=== PATIENT | female | born 1995 | race Caucasian/White ===

== ENCOUNTER 2021-05-05 11:25 | Emergency (ER) | payer BC, OTHER ==
[~2021-05-05] VITALS: Ht 177.8 cm; Wt 83.9 kg
[2021-05-05 12:37] LABS: ABSOLUTE NEUTROPHILS 3.2 thou/uL (1.4-8.2); BASOPHILS 1.6 % (0.0-2.0); EOSINOPHILS 2.5 % (0.0-3.0); HEMATOCRIT 41.5 % (37.0-47.0); HEMOGLOBIN 13.9 gm/dL (12.0-15.0); MCH 30.7 pg (26.0-34.0); MCHC 33.4 g/dL (28.0-37.0); MONOCYTES 10.4 % (1.0-8.0); PLATELET COUNT 288 thou/uL (150-400); POLYS 57.5 % (36.0-66.0); RBC 4.52 mil/uL (4.20-5.00); RDW 12.4 % (10.5-14.5); WBC 5.6 thou/uL (4.0-11.0)
[2021-05-05 12:43] LABS: CALCIUM 9.3 mg/dL (8.5-10.1); CREATININE 0.7 mg/dL (0.6-1.0); POTASSIUM 3.3 mmol/L (3.5-5.1)
[2021-05-05 13:59] LABS: URINE BILIRUBIN NEGATIVE (Negative); URINE BLOOD NEGATIVE (Negative); URINE CLARITY CLEAR; URINE COLOR YELLOW; URINE GLUCOSE-RANDOM* NEGATIVE (Negative); URINE KETONES NEGATIVE (Negative); URINE LEUKOCYTES-REFLEX NEGATIVE (Negative); URINE NITRITE-REFLEX NEGATIVE (Negative); URINE PROTEIN (DIPSTICK) NEGATIVE (Negative); URINE UROBILINOGEN 0.2 E.U./dl (0.2-1.0)
[2021-05-05] MEDS ORDERED: MOBIC7.5 MG PO (15:05)
[2021-05-05] MEDS ORDERED: ZANAFLEX4 MG PO (15:05)
[2021-05-05 15:18] VITALS: BP 118/71
== END 2021-05-05 15:20 | disposition home or self-care (01) ==
LOC: ER 11:25
PROVIDERS: Nurse Practitioner
DX: M53.3 Sacrococcygeal disorders, not elsewhere classified (principal); M79.651 Pain in right thigh; M79.652 Pain in left thigh